=== PATIENT | male | born 1975 | race Caucasian/White ===

== ENCOUNTER → 2016-08-18 | Outpatient (REF) ==
[~2016-08-18] MED LIST: FLONASEALLERGY NS; PRILOSEC 20MG20 MG PO; PROAIR HFA0.09 MG/AC IH; RT ADVAIR 228 DISKUS IH; SINGULAIR 110 MG/TAB PO; ZYRTEC 10MG10 MG PO
== END ==
LOC: WSOH 09:01
DX: Z01.89 Encounter for other specified special examinations (principal)

== ENCOUNTER 2017-05-01 00:11 | Day surgery (SDC) | payer BC ==
[~2017-05-01] VITALS: Ht 167.6 cm; Wt 78.3 kg
[2017-05-01 00:26] VITALS: BP 146/78; PULSE 57; TEMP 98.1
[2017-05-01 01:31] VITALS: BP 91/49; PULSE 69
== END 2017-05-01 02:27 | disposition home or self-care (01) ==
LOC: SDCO 00:11 → SURG 00:12 → SDCO 02:27
DX: T18.128A Food in esophagus causing other injury, initial encounter (principal); K22.2 Esophageal obstruction; R13.12 Dysphagia, oropharyngeal phase; K21.0 Gastro-esophageal reflux disease with esophagitis; K21.9 Gastro-esophageal reflux disease without esophagitis
CPT/HCPCS: OP; J2250; J3010